=== PATIENT | male | born 1960 | race Caucasian/White ===

== ENCOUNTER → 2020-10-28 | Outpatient (CLI) | payer OTHER ==
[~2020-10-28] MED LIST: EXCEDRIN CAPLE1 EACH PO; MULTIVITAMINS PO
== END ==
LOC: CAT 16:12
PROVIDERS: ATTEND Internal Medicine
DX: Z13.6 Encounter for screening for cardiovascular disorders (principal); I25.10 Atherosclerotic heart disease of native coronary artery without angina pectoris; E78.00 Pure hypercholesterolemia, unspecified

== ENCOUNTER → 2020-11-06 | Outpatient (CLI) | payer BC, OTHER | LOC: SJCVCIMAG 07:25 → SJCVC 10:06 → SJCVCIMAG 15:18 → SJCVC 15:35 | PROVIDERS: ATTEND Internal Medicine | DX: I10 Essential (primary) hypertension (principal); R06.00 Dyspnea, unspecified; R00.2 Palpitations; R42 Dizziness and giddiness; E78.5 Hyperlipidemia, unspecified; G47.33 Obstructive sleep apnea (adult) (pediatric) ==

== ENCOUNTER → 2020-12-19 | Outpatient (CLI) | payer BC, OTHER ==
[~2020-12-19] MED LIST changes: +EZETIMIBE10 MG PO; +FISH OIL 1,0001 EAC1 PO; +HYDROCODON-ACE1 EAC7 PO; +OLMESARTAN-HCT1 EAC1 PO; +POTASSIUM99 M1 PO; +ROSUVASTATIN CA40 MG PO; +TYLENOL EXTRA500 MG PO; +VITAMIN D-40010 MCG PO
== END | disposition home or self-care (01) ==
LOC: LAB 13:51
PROVIDERS: ATTEND Surgery
DX: Z01.812 Encounter for preprocedural laboratory examination (principal); Z20.822 Contact with and (suspected) exposure to COVID-19

== ENCOUNTER 2020-12-23 08:33 | Day surgery (SDC) | payer BC, OTHER ==
[~2020-12-23] VITALS: Ht 177.8 cm; Wt 102.1 kg
[~2020-12-23 08:33] MED LIST changes: -HYDROCODON-ACE1 EAC7 PO
[2020-12-23 09:37] LABS: CALCIUM 9.5 mg/dL (8.5-10.1); CREATININE 1.5 mg/dL (0.7-1.3)
[2020-12-23 09:45] VITALS: BP 128/65
[2020-12-23] MEDS ORDERED: HYDROCODON-ACE1 EAC7 PO (12:15)
[2020-12-23 13:54] VITALS: BP 128/65
--- NOTE | 2020-12-24 12:44 | O ---
[facility] [place] [address] [place] [address] OPERATIVE REPORT Name: JUANIS ANAND Room #: DEP [facility]..#: [id number] Admission: 12/23/20 Attend Phys: Obed Liu MD Discharge: 12/23/20 Date of : 62 Report #: [id number] THIS REPORT FOR: cc: Dionicio Maynard,Dionicio Bower,Obed Lamb MD ~ DATE OF SERVICE: 12/23/2020 PREOPERATIVE DIAGNOSIS: Cholecystitis with biliary dyskinesia. POSTOPERATIVE DIAGNOSIS: Cholecystitis with cholelithiasis, biliary dyskinesia. PROCEDURE PERFORMED: Laparoscopic cholecystectomy with intraoperative cholangiogram. SURGEON: Obed iLu MD ANESTHESIA: General anesthesia. COMPLICATIONS: None. BLOOD LOSS: 5 mL. FINDINGS: The gallbladder did have cholesterol deposit. The cystic duct area was fibrotic consistent with chronic scarring. DESCRIPTION OF PROCEDURE: With the patient under general anesthesia, abdomen was prepped and draped in sterile fashion. A small curvilinear incision about 2 cm was made above the umbilicus. The patient had a previous inguinal hernia repair. An incision was made from that surgery adjacent to the umbilicus. I decided to go above the umbilicus. The fascia was identified, grasped with hemostat. Fascia was then opened under visualization, 0 Vicryl suture placed on the fascia with the fascia, lifted anteriorly, Veress needle was then placed through the peritoneum. Abdominal cavity was insufflated with CO2 without difficulty. After establishing pneumoperitoneum, 11 mm trocar was placed into the pneumoperitoneum without harm to underlying tissue. The patient's colon is flipped up over the gallbladder area. It is not adhesed to it. Two 5 mm trocars were placed in the right upper quadrant and a 5 mm trocar was placed in right epigastrium under visualization. With the patient placed in the reverse Trendelenburg position, right side tilted up, the proximal part of transverse colon was able to be brought down ____ away from the gallbladder. The gallbladder was then visualized. The gallbladder was grasped at the fundus and at the more proximal part of the gallbladder there was quite a bit of fat over the cystic duct. The fat was dissected free laterally and also medially. The peritoneum was dissected free. Gallbladder was followed to the cystic duct. [address] [address] OPERATIVE REPORT Name: JUANIS ANAND Room #: DEP [facility].#: [id number] Admission: 12/23/20 Attend Phys: Obed Liu MD Discharge: 12/23/20 Date of : 62 Report #: [id number] Cystic duct was isolated without difficulty. The cystic duct surrounding tissue was fibrotic and dissection had to be carried out carefully to separate the cystic duct. Cystic duct-gallbladder junction was identified. Clip was placed here. Opening was made in the cystic duct, cholangiogram catheter was placed. The catheter went in just a little bit. This was held with 2 clips. When I injected dye there is extravasation at the cannulation site. The patient was flattened out. Fluoroscopic cholangiogram was obtained. Common duct did fill out despite the extravasation at the cannulation site. There was an air bubble that flushed through. No remaining defect or stone defect in the common duct. The common duct anatomy was normal. Cholangiogram catheter is separate from the common duct area. Catheter was then removed. The proximal aspect of cystic duct was clipped x 2. Cystic duct was then divided. The main trunk of the cystic artery was isolated, clipped x 2 proximally and 1 distally. There was a smaller posterior artery. This was also clipped and divided with cautery. Gallbladder was free from the liver bed without difficulty. The gallbladder was removed through the umbilical 11 mm trocar site. Came out easily. Gallbladder was opened off the field at the end of the case. There was quite a bit of cholesterol material in the gallbladder consistent with cholesterolosis. Liver bed was checked. Clips were intact. No bleeding was identified. Irrigation was aspirated out. Trocars removed. CO2 was evacuated as much as possible. The fascia defect above the umbilicus was closed with [id number] 0 Vicryl x 2. Skin was irrigated, closed with 5-0 PDS. Steri-Strip, Band-Aids applied. The patient tolerated the procedure well and was taken to recovery room. <ELECTRONICALLY SIGNED> By: Obed Liu MD 12/24/20 [id number] Obed Liu MD /nt
--- NOTE | 2020-12-25 17:06 | PATH ---
[facility] [place] [address] PATHOLOGY RPT PROCEDURE Name: NENO MORTON Room #: DEP [facility] M.R.#: [id number] Admission: 12/23/20 Date of : 62 Discharge: 12/23/20 Report #: [id number] Path Case #: [id number] [facility] Accession Number: [id number] . 01 Material submitted: . gallbladder - GALLBLADDER . 01 Clinical history: . LAPAROSCOPIC CHOLECYSTECTOMY WITH G CALULUS CHOLECYSTECTOMY CALCULUS CHOLECYSTITIS . 02 Diagnosis: Gallbladder, cholecystectomy: - Mild chronic cholecystitis. - No calculi identified, specimen received opened. (IUV:roman; 12/25/2020) QMS 12/25/2020 1439 Local . 02 Electronically signed: . Rosanne Dale MD, Pathologist NPI- [id number] . 01 Gross description: . The specimen is received in formalin, labeled "Neno Morton", "gallbladder". Received is a previously opened gallbladder measuring 5.2 x 2.5 x 1.2 cm. The external surface is wrinkled, shiny and dark green-yellow. The gallbladder is opened to show a green, velvety, bile-stained mucosa with no polypoid adhesions or solid mass is identified. The gallbladder wall measures 0.1-0.2 cm in thickness. Calculi are not present within the gallbladder or container. [employer] sections are submitted in cassette A1.(SNA; 12/24/2020) ERIC/ROOSEVELT 12/24/2020 1012 Local . 02 Pathologist provided ICD-10: K81.1 . 02 CPT . 396727 Specimen Comment: A courtesy copy of this report has been sent to [phone], [phone] Specimen Comment: [phone] Specimen Comment: Report sent to / DR ARAGON Performed at: [address] [facility], [place] [id number] MD Oni Olguin MD Phone: [phone] [address] [address] PATHOLOGY RPT PROCEDURE Name: CHENGNENO Room #: DEP [facility] Tato#: [id number] Admission: 12/23/20 Date of : 62 Discharge: 12/23/20 Report #: [id number] Path Case #: [id number] Performed at: [address] [facility] [place] [address], [place], [place] [id number] MD Rosanne Dale MD Phone: [phone]
== END 2020-12-23 13:54 | disposition home or self-care (01) ==
LOC: OR 08:33 → TBA 08:34 → OR 08:44
PROVIDERS: ATTEND Surgery
DX: K81.1 Chronic cholecystitis (principal); K82.8 Other specified diseases of gallbladder; I10 Essential (primary) hypertension; E78.5 Hyperlipidemia, unspecified; G47.30 Sleep apnea, unspecified; Z98.890 Other specified postprocedural states; Z79.899 Other long term (current) drug therapy; Z88.2 Allergy status to sulfonamides
CPT/HCPCS: 50010; 50101; 50411; 50555; 50558; 51489; 52265; 53307; 53310; 55245; 55317; 56462; 56525; 56526; 58574; 62110; 62900; 65131; 70005